=== PATIENT | male | born 1970 | race Caucasian/White ===

== ENCOUNTER 2016-05-24 17:10 | Emergency (ER) | payer OTHER ==
[2016-05-24] MEDS ORDERED: LACTATED RINGERS 1,000 ML IV STA (17:58)
[2016-05-24] MEDS ORDERED: ONDANSETRON 4 MG/2 ML VIAL IVP STA (17:58)
[2016-05-24] MEDS ORDERED: SODIUM CHLORIDE 0.9% 1,000 ML IV ONE (17:58)
[2016-05-24] MEDS ORDERED: ONDANSETRON 4 MG/2 ML VIAL ONE (18:24)
[2016-05-24] MEDS ORDERED: MAGNESIUM SULFATE 2 GRAM 50 ML IV ONE ×2 (18:43→20:40)
[2016-05-24] MEDS ORDERED: IOPAMIDOL-300 100 ML VIAL IVP ONE (18:50)
[2016-05-24] MEDS ORDERED: CHOLESTYRAMINE 4 GM PACKET PO STA (20:27)
[2016-05-24] MEDS ORDERED: AZITHROMYCIN 250 MG TABLET PO STA (20:27)
[2016-05-24] MEDS ORDERED: LOPERAMIDE 2 MG CAPSULE PO STA (20:28)
[2016-05-24] MEDS ORDERED: LOPERAMIDE 2 MG CAPSULE PO ONE (20:40)
[2016-05-24] MEDS ORDERED: AZITHROMYCIN 250 MG TABLET PO ONE (20:40)
== END 2016-05-24 22:00 | disposition home or self-care (01) ==
DX: A09 Infectious gastroenteritis and colitis, unspecified (principal); E86.0 Dehydration; E83.42 Hypomagnesemia; I10 Essential (primary) hypertension
CPT/HCPCS: 36415; 74177; 80053; 83690; 83735; 85025; 87045; 87046; 87177; 87209; 87493; 96361; 96374; 96375; 99283; 99285; A9270; Q9967

== ENCOUNTER 2016-07-29 09:03 | Day surgery (SDC) | payer OTHER ==
[2016-07-29] MEDS ORDERED: LACTATED RINGERS 1,000 ML IV ONE (09:31)
[2016-07-29] MEDS ORDERED: MIDAZOLAM 2 MG/2 ML VIAL IVP ONE (10:10)
[2016-07-29] MEDS ORDERED: fentaNYL 100 MCG/2 ML VIAL IVP ONE (10:10)
[2016-07-29 12:00] VITALS: BP 110/58
== END 2016-07-29 09:04 | disposition home or self-care (01) ==
LOC: SDS 09:03
PROVIDERS: ATTEND Internal Medicine
PROC: 0DBK8ZX Excision of Ascending Colon, Via Natural or Artificial Opening Endoscopic, Diagnostic (ICD-10-PCS; 2016-07-29)
PROC: 0DBH8ZX Excision of Cecum, Via Natural or Artificial Opening Endoscopic, Diagnostic (ICD-10-PCS; 2016-07-29)
PROC: 0DBE8ZX Excision of Large Intestine, Via Natural or Artificial Opening Endoscopic, Diagnostic (ICD-10-PCS; 2016-07-29)
PROC: 0DBP8ZX Excision of Rectum, Via Natural or Artificial Opening Endoscopic, Diagnostic (ICD-10-PCS; principal; 2016-07-29 10:30)
DX: K52.9 Noninfective gastroenteritis and colitis, unspecified (principal); D12.2 Benign neoplasm of ascending colon; D12.0 Benign neoplasm of cecum; K62.1 Rectal polyp; K57.30 Diverticulosis of large intestine without perforation or abscess without bleeding; K64.0 First degree hemorrhoids; I10 Essential (primary) hypertension; Z83.3 Family history of diabetes mellitus
CPT/HCPCS: 45380; 45385; J7120; 88305

== ENCOUNTER 2016-12-05 22:54 | Emergency (ER) | payer OTHER ==
[2016-12-05] MEDS ORDERED: IBUPROFEN 800 MG TABLET PO STA (23:10)
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
[2016-12-05] MEDS ORDERED: IBUPROFEN 800 MG TABLET PO ONE (23:19)
--- NOTE | 2016-12-05 23:39 | XRAY Preliminary Report ---
Exam: XR HAND 3 VIEW LT IMPRESSION: Normal hand radiography. [facility] SITE ID: [id number]
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
[2016-12-06 00:07] VITALS: BP 126/66
== END 2016-12-06 00:07 | disposition home or self-care (01) ==
LOC: ED 22:54
DX: S60.022A Contusion of left index finger without damage to nail, initial encounter (principal); S60.032A Contusion of left middle finger without damage to nail, initial encounter; W22.8XXA Striking against or struck by other objects, initial encounter; Y93.89 Activity, other specified; I10 Essential (primary) hypertension
CPT/HCPCS: 73130; 99283; A9270

== ENCOUNTER 2017-06-26 13:28 | Emergency (ER) | payer OTHER ==
[2017-06-26] MEDS ORDERED: TETANUS/DIPHTHERIA/PERTUSSIS 0.5 ML SYRINGE IM ONE (13:47)
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
[2017-06-26 14:17] VITALS: BP 112/66
== END 2017-06-26 14:17 | disposition home or self-care (01) ==
LOC: ED 13:28
DX: S91.331A Puncture wound without foreign body, right foot, initial encounter (principal); W45.0XXA Nail entering through skin, initial encounter; Y92.89 Other specified places as the place of occurrence of the external cause; I10 Essential (primary) hypertension; Z23 Encounter for immunization
CPT/HCPCS: 90471; 99282; 99283

== ENCOUNTER 2023-01-27 04:26 | Emergency (ER) | payer OTHER ==
[2023-01-27] MEDS ORDERED: SODIUM CHLORIDE 0.9% 1,000 ML IV STA (04:50)
[2023-01-27 05:18] LABS: BASOPHILS % (AUTO) 0.1 %; EOSINOPHILS # (AUTO) 0.1 10^3/uL (0.0-0.7); EOSINOPHILS % (AUTO) 0.6 %; HCT - HEMATOCRIT 48.1 % (42.0-52.0); HGB - HEMOGLOBIN 15.8 g/dL (14.0-18.0); LYMPHOCYTES # (AUTO) 1.8 10^3/uL (1.5-3.5); LYMPHOCYTES % (AUTO) 22.6 %; MEAN CORPUSCULAR HEMOGLOBIN 29.1 pg (27.0-31.0); MEAN CORPUSCULAR HGB CONC 32.8 g/dL (32.0-36.0); MEAN CORPUSCULAR VOLUME 88.6 fL (80.0-94.0); MEAN PLATELET VOLUME 10.6 fL (7.4-11.4); MONOCYTES # (AUTO) 0.5 10^3/uL (0.0-1.0); MONOCYTES % (AUTO) 6.5 %; NEUTROPHILS # (AUTO) 5.7 10^3/uL (1.5-6.6); PLT - PLATELET COUNT 209 10^3/uL (130-450); RED BLOOD COUNT 5.43 10^6/uL (4.70-6.10); WHITE BLOOD COUNT 8.2 x10^3/uL (4.8-10.8)
--- NOTE | 2023-01-27 05:28 | ED Physician Documentation ---
History of Present Illness - Stated complaint Stated Complaint: LIGHTHEADED/SOA/SHAKY - Chief complaint Chief Complaint: General - History obtained from History obtained from: Patient - Additonal information Additional information: Patient is a 52-year-old with a history of hypertension presenting for evaluation of feeling shaky this morning when he woke up. Patient reports he has been feeling under the weather for the past few days with nasal congestion. He has missed the past few days of work and states that after 3 days he needs a note per [employer] policy. He recently had lab test done through the [facility] on Wednesday and checked them over the weekend and saw that his hemoglobin A1c was 12. He does not previously have a diagnosis of diabetes. He reports he called his PCP at the [facility] and moved up his appointment to next week to talk about his lab results and initiating medication treatment. He denies feeling short of air but states that when he lays down he has trouble with his breathing because of the nasal congestion and has to breathe through his mouth. No chest pain, abdominal pain, vomiting or diarrhea. Reports decreased appetite today. Review of Systems Constitutional: denies: Fever Nose: reports: Congestion Cardiac: denies: Chest pain / pressure Respiratory: denies: Dyspnea GI: denies: Abdominal Pain, Vomiting PD PAST MEDICAL HISTORY - Past Medical History Past Medical History: Yes Cardiovascular: Hypertension Respiratory: None, Other Endocrine/Autoimmune: None GI: Chronic diarrhea : None HEENT: None Psych: None Musculoskeletal: None Derm: None - Past Surgical History Past Surgical History: Yes HEENT: Tonsil/Adenoidectomy - Present Medications Home Medications: Ambulatory Orders Medication Instructions Recorded Confirmed Lisinopril/Hydrochlorothiazide 20 mg PO DAILY 04/01/15 12/05/16 [Lisinopril-Hctz 20-25 mg Tab] Prazosin [Minipress] 1 mg PO QPM #60 capsule 09/20/19 - Allergies Allergies/Adverse Reactions: Allergies Allergy/AdvReac Type Severity Reaction Status Date / Time No Known Drug Allergies Allergy Verified 01/27/23 04:37 - Social History Does the pt smoke?: No Smoking Status: Never smoker Does the pt drink ETOH?: Yes Does the pt have substance abuse?: No - Immunizations Immunizations are current?: Yes - POLST Patient has POLST: No PD ED PE NORMAL - General General: Alert and oriented X 3, No acute distress, Well developed/nourished - HEENT HEENT: Atraumatic - Neck Neck: Supple, no meningeal sign - Cardiac Cardiac: RRR, Strong equal pulses - Respiratory Respiratory: No respiratory distress, Clear bilaterally - Abdomen Abdomen: Soft, Non tender, Non distended - Derm Derm: Warm and dry - Neuro Neuro: Alert and oriented X 3, No motor deficit, No sensory deficit, Normal speech, Other (No tremors) Results - Vitals Vitals: Vital Signs - 24 hr 01/27/23 01/27/23 04:33 05:40 Temperature 36.8 C Heart Rate 100 75 Respiratory 18 18 Rate Blood Pressure 135/89 H 135/76 H O2 Saturation 100 98 Oxygen O2 Source Room air - EKG (time done) 0442 EKG releavant findings:: EKG personally interpreted by author of this note. Relevant findings are: Rate 88, normal sinus rhythm, no STEMI, no ST depressions - Labs Labs: Laboratory Tests 01/27/23 01/27/23 01/27/23 04:43 04:45 05:11 WBC 8.2 RBC 5.43 Hgb 15.8 Hct 48.1 MCV 88.6 MCH 29.1 MCHC 32.8 RDW 12.0 Plt Count 209 MPV 10.6 Neut # (Auto) 5.7 Lymph # (Auto) 1.8 [place] # (Auto) 0.5 Eos # (Auto) 0.1 Baso # (Auto) 0.0 Absolute Nucleated RBC 0.00 Nucleated RBC % 0.0 Sodium Potassium Chloride Carbon Dioxide Anion Gap BUN Creatinine Estimated GFR (MDRD) Glucose POC Whole Bld Glucose 269 H Calcium Total Bilirubin AST ALT Alkaline Phosphatase Total Protein Albumin Globulin Albumin/Globulin Ratio Lipase Nasal Adenovirus (PCR) NOT DETECTED Nasal B. parapertussis DNA (PCR) NOT DETECTED Nasal Coronavir 229E PCR NOT DETECTED Nasal Coronavir HKU1 PCR NOT DETECTED Nasal Coronavir NL63 PCR NOT DETECTED Nasal Coronavir OC43 PCR NOT DETECTED Nasal Enterovir/Rhinovir PCR NOT DETECTED Nasal Influenza B PCR NOT DETECTED Nasal Influenza A PCR NOT DETECTED Nasal Parainfluen 1 PCR NOT DETECTED Nasal Parainfluen 2 PCR NOT DETECTED Nasal Parainfluen 3 PCR NOT DETECTED Nasal Parainfluen 4 PCR NOT DETECTED Nasal RSV (PCR) NOT DETECTED Nasal B.pertussis DNA PCR NOT DETECTED Nasal C.pneumoniae (PCR) NOT DETECTED Humberto Human Metapneumo PCR NOT DETECTED Nasal M.pneumoniae (PCR) NOT DETECTED Nasal SARS-CoV-2 (PCR) DETECTED A 01/27/23 05:11 WBC RBC Hgb Hct MCV MCH MCHC RDW Plt Count MPV Neut # (Auto) Lymph # (Auto) [place] # (Auto) Eos # (Auto) Baso # (Auto) Absolute Nucleated RBC Nucleated RBC % Sodium 136 Potassium 3.9 Chloride 99 L Carbon Dioxide 26 Anion Gap 11.0 BUN 20 Creatinine 1.0 Estimated GFR (MDRD) 78 L Glucose 256 H POC Whole Bld Glucose Calcium 9.6 Total Bilirubin 1.0 AST 15 ALT 25 Alkaline Phosphatase 59 Total Protein 7.3 Albumin 4.3 Globulin 3.0 Albumin/Globulin Ratio 1.4 Lipase 41 Nasal Adenovirus (PCR) Nasal B. parapertussis DNA (PCR) Nasal Coronavir 229E PCR Nasal Coronavir HKU1 PCR Nasal Coronavir NL63 PCR Nasal Coronavir OC43 PCR Nasal Enterovir/Rhinovir PCR Nasal Influenza B PCR Nasal Influenza A PCR Nasal Parainfluen 1 PCR Nasal Parainfluen 2 PCR Nasal Parainfluen 3 PCR Nasal Parainfluen 4 PCR Nasal RSV (PCR) Nasal B.pertussis DNA PCR Nasal C.pneumoniae (PCR) Humberto Human Metapneumo PCR Nasal M.pneumoniae (PCR) Nasal SARS-CoV-2 (PCR) PD Medical Decision Making - ED course Complexity details: reviewed results, re-evaluated patient, d/w patient ED course: Pt with nasal congestion for few days along with feeling shaky this morning. Reports recent outpatient labs indicate diabetes and he has appointment with PCP next week to discuss management. VSS. No SOA (other than related to nasal congestion) and no abdominal pain/nausea/vomiting. Clinically well appearing. No clinical signs of DKA. EKG with no arrhythmia. CBC and chemistries without significant findings other than hyperglycemia in 200s. Pt feeling well after fluids. Resp swab is + for COVID. Pt not hypoxic. Counseled on continued supportive care as well as concerning symptoms to return for. Departure - Departure Disposition: 01 Home, Self Care Clinical Impression: COVID-19, Hyperglycemia Condition: Stable Instructions: ED Viral Syndrome, ED Hyperglycemia New Susp Diabetes Comments: YOu have tested positive for COVID 19. You need to quarantine per CDC guidelines (5 days). Please make sure to keep your appointment with your PCP to discuss your recent outpatient labs including your elevated hemoglobin A1c that suggest that you have developed diabetes. In the meanwhile please continue to stay hydrated and get plenty of rest. For your nasal congestion you can try a saline spray in the nose to help loosen up the congestion. Return to the ER with any worsening symptoms. Forms: PCP List, Activity restrictions Discharge Date/Time: 01/27/23 06:45
[2023-01-27 05:41] LABS: ALBUMIN 4.3 g/dL (3.2-5.5); ALBUMIN/GLOBULIN RATIO 1.4 (1.0-2.2); CALCIUM 9.6 mg/dL (8.5-10.3); POTASSIUM 3.9 mmol/L (3.5-4.5); TOTAL PROTEIN 7.3 g/dL (6.4-8.9)
[2023-01-27 05:43] VITALS: BP 135/76; O2SAT 98
[2023-01-27 06:10] LABS: CORONAVIRUS 229E-RESP PCR NOT DETECTED; CORONAVIRUS HKU1-RESP PCR NOT DETECTED; CORONAVIRUS NL63-RESP PCR NOT DETECTED; CORONAVIRUS OC43-RESP PCR NOT DETECTED
[2023-01-27 06:11] LABS: B. PARAPERTUSSIS- RESP PCR PAN NOT DETECTED; B. PERTUSSIS- RESP PCR PANEL NOT DETECTED; C. PNEUMONIAE- RESP PCR PANEL NOT DETECTED; HUMAN METAPNEUMOVIRUS NOT DETECTED; INFLUENZA A- RESP PCR PANEL NOT DETECTED; INFLUENZA B - RESP PCR PANEL NOT DETECTED; M. PNEUMONIAE- RESP PCR PANEL NOT DETECTED; PARAINFLUENZA VIRUS 1 NOT DETECTED; PARAINFLUENZA VIRUS 2 NOT DETECTED; PARAINFLUENZA VIRUS 3 NOT DETECTED; PARAINFLUENZA VIRUS 4 NOT DETECTED; RHINOVIRUS/ENTEROVIRUS NOT DETECTED; RSV- RESP PCR PANEL NOT DETECTED; SARS-CoV-2 -RESP PCR PANEL DETECTED
== END 2023-01-27 06:45 | disposition home or self-care (01) ==
LOC: ED 04:26
DX: U07.1 COVID-19 (principal); R73.9 Hyperglycemia, unspecified; I10 Essential (primary) hypertension; Z79.899 Other long term (current) drug therapy
CPT/HCPCS: 36415; 80053; 83690; 85025; 87633; 93005; 96360; 99283

== ENCOUNTER 2023-02-01 06:04 | Emergency (ER) | payer OTHER ==
--- NOTE | 2023-02-01 06:12 | ED Physician Documentation ---
PD HPI DYSPNEA - Stated complaint Stated Complaint: SOA/HEART RACING - History obtained from History obtained from: Patient - Additional information Additional information: 52-year-old male with PMH HTN, newly diagnosed diabetes presents with shortness of breath and heart palpitations that he noticed when he woke up at 4:00 today. Patient states that he felt his heart pounding and felt short of breath and when the symptoms did not subside he decided to present for evaluation. Seen in ED 5 days prior for "shakiness". Patient's workup was notable for hyperglycemia and he also tested positive for COVID 19. He States that he was able [facility] from now. He does endorse that this new diagnosis of diabetes has caused him significant stress and anxiety. He has been monitoring his blood sugars at home and his glucose when waking up this morning was 150 Review of Systems Constitutional: denies: Fever, Chills Cardiac: reports: Palpitations. denies: Chest pain / pressure, Calf pain Respiratory: reports: Dyspnea. denies: Cough, Wheezing GI: denies: Abdominal Pain, Nausea, Vomiting PD PAST MEDICAL HISTORY - Past Medical History Cardiovascular: Hypertension Respiratory: None, Other Endocrine/Autoimmune: None GI: Chronic diarrhea : None HEENT: None Psych: None Musculoskeletal: None Derm: None - Past Surgical History Past Surgical History: Yes HEENT: Tonsil/Adenoidectomy - Present Medications Home Medications: Ambulatory Orders Medication Instructions Recorded Confirmed Lisinopril/Hydrochlorothiazide 1 each PO DAILY 02/01/23 02/01/23 [Zestoretic 10-12.5 mg Tablet] - Allergies Allergies/Adverse Reactions: Allergies Allergy/AdvReac Type Severity Reaction Status Date / Time No Known Drug Allergies Allergy Verified 02/01/23 06:12 - Social History Does the pt smoke?: No Smoking Status: Never smoker Does the pt drink ETOH?: Yes Does the pt have substance abuse?: No - Immunizations Immunizations are current?: Yes - POLST Patient has POLST: No PD ED PE NORMAL - Vitals Vital signs reviewed: Yes - General General: Alert and oriented X 3, No acute distress, Well developed/nourished - HEENT HEENT: Atraumatic - Neck Neck: Supple, no meningeal sign - Cardiac Cardiac: RRR, No murmur, Strong equal pulses - Respiratory Respiratory: No respiratory distress, Clear bilaterally - Abdomen Abdomen: Soft, Non tender, Non distended - Derm Derm: Normal color, Warm and dry, No rash - Extremities Extremities: No deformity, No tenderness to palpate, Normal ROM s pain, No edema - Neuro Neuro: Alert and oriented X 3, 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 Relevant findings are: Rate: Rate (enter#) (85) Rhythm: NSR [place]: Normal Intervals: Normal [place] QRS: Normal Ischemia: Normal ST segments - Labs Labs: Laboratory Tests 02/01/23 06:43 POC Whole Bld Glucose 165 H PD Medical Decision Making - ED course Complexity details: reviewed old records, reviewed results, re-evaluated patient, considered differential, d/w patient ED course: Well-appearing patient with pounding heart and shortness of breath that began after waking up. Patient recently in the emergency department for "shakiness", otherwise normal workup except for COVID-19 positive and mild hyperglycemia without DKA. Patient does endorse that he has had significant anxiety since his new diagnosis of diabetes. Patient is hemodynamically stable with a heart rate of 85 bpm, BP 130/85. Since being in the emergency department patient's symptoms have subsided and he is resting comfortably in bed. Laboratory work is pending, chest x-ray is negative for acute process. Care of patient to be signed out to morning ED doctor. Departure - Departure Clinical Impression: Palpitations Dyspnea Qualifiers: Dyspnea type: unspecified Qualified Code(s): R06.00 - Dyspnea, unspecified Condition: Stable
[2023-02-01 07:08] LABS: BASOPHILS % (AUTO) 0.4 %; EOSINOPHILS % (AUTO) 0.5 %; HCT - HEMATOCRIT 45.6 % (42.0-52.0); LYMPHOCYTES # (AUTO) 2.1 10^3/uL (1.5-3.5); LYMPHOCYTES % (AUTO) 25.2 %; MEAN CORPUSCULAR HEMOGLOBIN 30.4 pg (27.0-31.0); MEAN CORPUSCULAR HGB CONC 35.1 g/dL (32.0-36.0); MEAN CORPUSCULAR VOLUME 86.7 fL (80.0-94.0); MEAN PLATELET VOLUME 10.1 fL (7.4-11.4); MONOCYTES # (AUTO) 0.5 10^3/uL (0.0-1.0); NEUTROPHILS # (AUTO) 5.6 10^3/uL (1.5-6.6); NEUTROPHILS % (AUTO) 67.7 %; PLT - PLATELET COUNT 265 10^3/uL (130-450); RED BLOOD COUNT 5.26 10^6/uL (4.70-6.10); RED CELL DISTRIBUTION WIDTH 11.9 % (12.0-15.0); WHITE BLOOD COUNT 8.2 x10^3/uL (4.8-10.8)
[2023-02-01 07:15] LABS: INR 1.2 (0.8-1.2); PT - PROTHROMBIN TIME 12.5 secs (9.9-12.6)
[2023-02-01 07:21] LABS: ALBUMIN 4.5 g/dL (3.2-5.5); ALBUMIN/GLOBULIN RATIO 1.6 (1.0-2.2); BILIRUBIN,TOTAL 0.9 mg/dL (0.2-1.0); CREATININE 0.8 mg/dL (0.6-1.3); POTASSIUM 4.1 mmol/L (3.5-4.5); TOTAL PROTEIN 7.4 g/dL (6.4-8.9)
[2023-02-01 07:23] LABS: TROPONIN I HIGH SENSITIVITY 3.3 ng/L (2.3-19.7)
[2023-02-01 07:31] LABS: THYROID STIMULATING HORMONE 1.14 uIU/mL (0.34-5.60)
--- NOTE | 2023-02-01 07:59 | XRAY Report ---
PROCEDURE: Chest 1 View X-Ray INDICATIONS: dyspnea, palpitations TECHNIQUE: One view of the chest was acquired. COMPARISON: Chest radiograph on April 01, 2015 FINDINGS: Surgical changes and devices: None. Lungs and pleura: No pleural effusions or pneumothorax. Lung volumes are slightly low with right karolina al or linear atelectasis. Lungs are otherwise clear. Mediastinum: Mediastinal contours appear normal. Heart size is normal. Bones and chest wall: No suspicious bony lesions. Overlying soft tissues appear unremarkable. IMPRESSION: No acute cardiopulmonary process. Reviewed by: Tana Rey MD on 02/01/2023 7:58 AM PST Approved by: Tana Rey MD on 02/01/2023 7:58 AM PST Station ID: [id number]
[2023-02-01 08:14] VITALS: BP 119/90; O2SAT 99
--- NOTE | 2023-02-01 08:22 | ED Physician Documentation ---
ED Addendum - Addendum Addendum: 02/01/23 08:20 The patient's troponin and BNP are normal. Glucose was 190s. He states her recent routine blood test had shown a blood sugar quite elevated in the high 200s and a A1c of 12.5. He had not gotten very results back from his primary care but had looked them up online. Presumption would be starting some antidiabetic medicine and we can start with some metformin presuming his primary will at least do that. Blood sugar today was not too bad at 195. No signs of heart attack or heart failure, enlarged heart or pneumonia or pneumothorax on his current testing. Consider potential reflux versus anxiety versus musculoskeletal. Disposition: The patient is discharged home in stable condition. Diagnoses: 1. Chest pressure 2. Elevated blood sugar 3. rule out myocardial infarction 02/01/23 08:22
== END 2023-02-01 08:44 | disposition home or self-care (01) ==
LOC: ED 06:04
DX: R06.09 Other forms of dyspnea (principal); R00.2 Palpitations; R07.9 Chest pain, unspecified; E11.65 Type 2 diabetes mellitus with hyperglycemia; I10 Essential (primary) hypertension
CPT/HCPCS: 36415; 80053; 83880; 84443; 84484; 85025; 85610; 93005; 99283; 99284